=== PATIENT | male | born 1995 | race Caucasian/White ===

== ENCOUNTER 2017-04-09 21:05 | Emergency (ER) | payer OTHER ==
[2017-04-09 21:16] VITALS: RESP 16; TEMP 99.1
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
[2017-04-09 21:57] VITALS: BP 130/77; PULSE 81; O2SAT 96
== END 2017-04-09 21:45 | disposition home or self-care (01) ==
LOC: CED 21:05
DX: T22.232A Burn of second degree of left upper arm, initial encounter (principal); T31.0 Burns involving less than 10% of body surface; X17.XXXA Contact with hot engines, machinery and tools, initial encounter; Y92.214 College as the place of occurrence of the external cause